=== PATIENT | male | born 1955 | race Caucasian/White ===

== ENCOUNTER 2017-05-28 06:39 | Observation (INO) | payer MEDICAID ==
--- NOTE | 2017-05-28 07:02 | ED PDOC ---
HPI: Chest Pain Time Seen by Provider: 05/28/17 06:52 Chief Complaint (Nursing): Chest Pain History Per: Patient History/Exam Limitations: no limitations Onset/Duration Of Symptoms: Hrs Current Symptoms Are (Timing): Still Present Severity: None Quality: Pressure, "Pain" Additional Complaint(s): Hx of HLD p/w CP, started while at rest, was in a car being driven to work, states the pain starts in the epigastrium and radiates midsternal, L arm, and to the back. States it feels like a pressure and a "heavy pain". Denies tearing sensation, diaphoresis, nor sOB. Never smoker/drinker. No cardiac hx. Past Medical History Reviewed: Historical Data, Nursing Documentation, Vital Signs Vital Signs: Last Vital Signs Temp 98.4 F 05/28/17 20:07 Pulse 77 05/28/17 20:07 Resp 16 05/28/17 20:07 BP 153/98 H 05/28/17 20:07 Pulse Ox 99 05/28/17 20:07 - Medical History PMH: HTN, Hyperlipidemia - Surgical History Surgical History: Appendectomy - Family History Family History: States: Unknown Family Hx - Home Medications Home Medications: Ambulatory Orders Medication Instructions Recorded Omeprazole [Omeprazole] 20 mg PO DAILY 05/28/17 Propranolol HCl [Propranolol HCl] 10 mg PO Q12 05/28/17 Simvastatin [Zocor] 20 mg PO HS 05/28/17 - Allergies Allergies/Adverse Reactions: Allergies Allergy/AdvReac Type Severity Reaction Status Date / Time No Known Allergies Allergy Verified 05/28/17 06:46 SHERIDAN Risk Score for UA/NSTEMI - SHERIDAN Risk Score Age > 64: NO 3 or more CAD Risk Factors: NO Known CAD (Stenosis greater than 50%): NO Aspirin use in past 7 days: NO Severe Angina: YES EKG ST changes greater than 0.5mm: NO Positive Cardiac Marker: NO SHERIDAN Score: 1 Risk %: 5% Curb-65 Severity Score - CURB-65 Severity Score Confusion: No Bun >19mg/dl (>7mmol/L): No Respiratory Rate greater than/equal to 30: No Systolic BP <90 or Diastolic BP less than/equal 60mmHg: No Age >64: No Curb-65 Score: 0 Percentage 30-day mortality: 0.6% Review of Systems ROS Statement: Except As Marked, All Systems Reviewed And Found Negative Cardiovascular: Positive for: Chest Pain Physical Exam - Reviewed Nursing Documentation Reviewed: Yes Vital Signs Reviewed: Yes - Physical Exam Appears: Positive for: Well, Non-toxic, Uncomfortable, In Acute Distress Head Exam: Positive for: ATRAUMATIC, NORMAL INSPECTION, NORMOCEPHALIC Skin: Positive for: Normal Color, Warm, DRY Eye Exam: Positive for: EOMI, Normal appearance, PERRL ENT: Positive for: Normal ENT Inspection Neck: Positive for: Normal, Painless ROM Cardiovascular/Chest: Positive for: Regular Rate, Rhythm Respiratory: Positive for: CNT, Normal Breath Sounds Gastrointestinal/Abdominal: Positive for: Normal Exam, Soft Back: Positive for: Normal Inspection Extremity: Positive for: Normal ROM Neurologic/Psych: Positive for: Alert, meat service team member II-XII, Oriented. Negative for: Motor/Sensory Deficits - Laboratory Results Result Diagrams: 05/28/17 06:55 05/28/17 06:55 - ECG ECG Rhythm: Positive for: Normal QRS, Normal ST Segment O2 Sat by Pulse Oximetry: 100 Medical Decision Making Medical Decision MakinAM A/P: HX of HLD p/w acute cp/epigastric pain -concerned for ACS, possibly dissection given location of pain -will get labs, cxr, dissection study -will endorse to Dr. Vidales pending workup Disposition - Clinical Impression Clinical Impression: Chest pain - Patient ED Disposition Is Patient to be Admitted: Transfer of Care - Disposition Disposition: Transfer of Care Disposition Time: 07:00 Condition: STABLE Patient Signed Over To: Juvencio Vidales III (pending labs, CT Dissection Study) Handoff Comments: pending workup
--- NOTE | 2017-05-28 07:12 | ED PDOC ---
- Laboratory Results Result Diagrams: 05/28/17 06:55 05/28/17 06:55 - ECG O2 Sat by Pulse Oximetry: 100 Medical Decision Making Medical Decision Making: Patient signed out to me by Dr. Neil @ 07:00, pending labs, CT Dissection Study. Accession No. : [id number] Patient Name / ID : JOSETTE FINCH / [id number] Exam Date : 05/28/2017 07:30:09 ( Approved ) Study Comment : Sex / Age : M / 61Y Creator : Josr Loredo MD Dictator : Josr Loredo MD Rotor Coil Taper : Radiation Control Worker : Josr Loredo MD Approver2 : Report Date : 05/28/2017 09:47:00 My Comment : PROCEDURE: CT Angiography Chest, Abdomen and Pelvis with and without intravenous contrast HISTORY: cp, epig pain, back pain COMPARISON: None. TECHNIQUE: Contiguous axial images of the chest, abdomen and pelvis were obtained in the phase of aortic enhancement. A noncontrast enhanced CT of the chest was also obtained to evaluate for possible intramural thrombus. Coronal and sagittal reformats were generated. IV dose administered: 99 cc Visipaque 320 Radiation dose: Total exam DLP = 1644.02 mGy-cm. This CT exam was performed using one or more of the following dose reduction techniques: Automated exposure control, adjustment of the mA and/or kV according to patient size, and/or use of iterative reconstruction technique. FINDINGS: CT ANGIOGRAPHY OF THE CHEST WITH & WITHOUT CONTRAST: AORTA (CHEST AND ABDOMEN): There is mild aneurysmal dilatation of the ascending thoracic aorta to a diameter of 4.0 cm. There is no evidence of thoracic aortic dissection. There is no evidence abdominal aortic dissection or abdominal aortic aneurysm. The celiac axis, superior mesenteric artery, inferior mesenteric artery and the renal arteries are widely patent. The pelvic arteries are unremarkable. LUNGS: No pulmonary infiltrate. Multiple small pleural-based nodules are identified. Right lower lobe, 10 mm. Left lower lobe, 7 mm. Superior segment right lower lobe, 4 mm. Posterior segment right upper lobe, 7 mm. Apical posterior segment left upper lobe, 5 mm. Apical segment right upper lobe 5 mm. 5 mm subpleural nodule along the lateral aspect minor fissure. 6 mm nodule along the lateral aspect minor fissure. 5 mm nodule along medial aspect minor fissure. This is a nonspecific finding. The possibility of pleural metastatic disease should be considered. MEDIASTINUM: Aneurysmal dilatation of ascending thoracic aorta as above. Normal size heart. Coronary arterial calcification. No pericardial effusion. Very small hiatal hernia with associated small gastric diverticulum. LYMPH NODES: Unremarkable. PLEURA: No pleural effusion. No pneumothorax. BONES: Unremarkable. OTHER FINDINGS: None. CT ANGIOGRAPHY OF THE ABDOMEN AND PELVIS WITH CONTRAST: LIVER: Unremarkable. No gross lesion or ductal dilatation. GALLBLADDER AND BILE DUCTS: Unremarkable. PANCREAS: Unremarkable. No gross lesion or ductal dilatation. SPLEEN: Unremarkable. ADRENALS: Unremarkable. No mass. KIDNEYS AND URETERS: 14 mm mid left renal cortical cyst. No renal calculus or hydronephrosis appreciated. VASCULATURE: Unremarkable. No aortic aneurysm. STOMACH AND BOWEL: No bowel obstruction. No significant retained feces. APPENDIX: Not identified PERITONEUM: Unremarkable. No free fluid. No free air. LYMPH NODES: Unremarkable. No enlarged lymph nodes. BLADDER: Unremarkable. REPRODUCTIVE: Mild prostate enlargement BONES: No acute fracture. OTHER FINDINGS: None. IMPRESSION: Mild aneurysmal dilatation of the ascending thoracic aorta. No evidence thoracic or abdominal aortic dissection. No abdominal aortic aneurysm. Multiple pleural-based nodules bilaterally, uncertain significance. Consider the possibility of pleural metastasis. No pulmonary infiltrate. No other acute abnormality. Admit to Dr Tamar Braxton who is at bedside 10am Initial results discussed w patient ASA 325mg ordered Scribe Attestation: Documented by Liam Bee, acting as a scribe for Juvencio Vidales III, DO Provider Scribe Attestation: All medical record entries made by the Scribe were at my direction and personally dictated by me. I have reviewed the chart and agree that the record accurately reflects my personal performance of the history, physical exam, medical decision making, and the department course for this patient. I have also personally directed, reviewed, and agree with the discharge instructions and disposition. Disposition Counseled Patient/Family Regarding: Studies Performed, Diagnosis, Need For Followup - Clinical Impression Clinical Impression: Chest pain - POA Present On Arrival: None - Disposition Disposition: Routine/Home Disposition Time: 09:50 Condition: STABLE Forms: [employer] (Yoruba)
[2017-05-28 07:15] LABS: BASO # 0.1 K/uL (0.0-0.2); BASO % 1.2 % (0.0-2.0); EOS # 0.3 K/uL (0.0-0.7); EOS % 4.6 % (0.0-4.0); HEMOGLOBIN 16.7 g/dL (12.0-18.0); LYMPH % 55.9 % (20.0-40.0); MEAN CELL VOLUME 88.1 fl (80.0-94.0); MEAN CORPUSCULAR HEMOGLOBIN 29.8 pg (27.0-31.0); MEAN CORPUSCULAR HGB CONC 33.8 g/dL (33.0-37.0); MEAN PLATELET VOLUME 10.1 fl (7.2-11.7); MONO # 0.5 K/uL (0.0-0.8); NEUT # 1.5 K/uL (1.8-7.0); NEUT % 28.3 % (50.0-75.0); NRBC % 0.2 % (0.0-0.0); RBC 5.6 Mil/uL (4.40-5.90); RED CELL DISTRIBUTION WIDTH 14.5 % (11.5-14.5); WHITE BLOOD COUNT 5.4 K/uL (4.8-10.8)
[2017-05-28 07:25] LABS: INR 0.9 (0.9-1.2); PARTIAL THROMBOPLASTIN TIME 36.5 Seconds (25.6-37.1); PROTHROMBIN TIME 9.7 Seconds (9.8-13.1)
[2017-05-28 07:29] LABS: BLOOD UREA NITROGEN 17 mg/dl (9-20); CALCIUM 10.2 mg/dL (8.4-10.2); GFR AFRICAN-AMERICAN > 60; GFR NON-AFRICAN AMERICAN > 60
[2017-05-28] MEDS ORDERED: Iodixanol 320 MG/ML 100 ML BOTTLE IV ONE (07:35)
[2017-05-28] MEDS ORDERED: Sodium Chloride 0.9% 100 ML ONE (07:35)
[2017-05-28 09:10] LABS: ALBUMIN 4.7 g/dL (3.5-5.0); BILIRUBIN,DIRECT 0.4 mg/ml (0.0-0.4)
--- NOTE | 2017-05-28 09:48 | CT ---
PROCEDURE: CT Angiography Chest, Abdomen and Pelvis with and without intravenous contrast HISTORY: cp, epig pain, back pain COMPARISON: None. TECHNIQUE: Contiguous axial images of the chest, abdomen and pelvis were obtained in the phase of aortic enhancement. A noncontrast enhanced CT of the chest was also obtained to evaluate for possible intramural thrombus. Coronal and sagittal reformats were generated. IV dose administered: 99 cc Visipaque 320 Radiation dose: Total exam DLP = 1644.02 mGy-cm. This CT exam was performed using one or more of the following dose reduction techniques: Automated exposure control, adjustment of the mA and/or kV according to patient size, and/or use of iterative reconstruction technique. FINDINGS: CT ANGIOGRAPHY OF THE CHEST WITH & WITHOUT CONTRAST: AORTA (CHEST AND ABDOMEN): There is mild aneurysmal dilatation of the ascending thoracic aorta to a diameter of 4.0 cm. There is no evidence of thoracic aortic dissection. There is no evidence abdominal aortic dissection or abdominal aortic aneurysm. The celiac axis, superior mesenteric artery, inferior mesenteric artery and the renal arteries are widely patent. The pelvic arteries are unremarkable. LUNGS: No pulmonary infiltrate. Multiple small pleural-based nodules are identified. Right lower lobe, 10 mm. Left lower lobe, 7 mm. Superior segment right lower lobe, 4 mm. Posterior segment right upper lobe, 7 mm. Apical posterior segment left upper lobe, 5 mm. Apical segment right upper lobe 5 mm. 5 mm subpleural nodule along the lateral aspect minor fissure. 6 mm nodule along the lateral aspect minor fissure. 5 mm nodule along medial aspect minor fissure. This is a nonspecific finding. The possibility of pleural metastatic disease should be considered. MEDIASTINUM: Aneurysmal dilatation of ascending thoracic aorta as above. Normal size heart. Coronary arterial calcification. No pericardial effusion. Very small hiatal hernia with associated small gastric diverticulum. LYMPH NODES: Unremarkable. PLEURA: No pleural effusion. No pneumothorax. BONES: Unremarkable. OTHER FINDINGS: None. CT ANGIOGRAPHY OF THE ABDOMEN AND PELVIS WITH CONTRAST: LIVER: Unremarkable. No gross lesion or ductal dilatation. GALLBLADDER AND BILE DUCTS: Unremarkable. PANCREAS: Unremarkable. No gross lesion or ductal dilatation. SPLEEN: Unremarkable. ADRENALS: Unremarkable. No mass. KIDNEYS AND URETERS: 14 mm mid left renal cortical cyst. No renal calculus or hydronephrosis appreciated. VASCULATURE: Unremarkable. No aortic aneurysm. STOMACH AND BOWEL: No bowel obstruction. No significant retained feces. APPENDIX: Not identified PERITONEUM: Unremarkable. No free fluid. No free air. LYMPH NODES: Unremarkable. No enlarged lymph nodes. BLADDER: Unremarkable. REPRODUCTIVE: Mild prostate enlargement BONES: No acute fracture. OTHER FINDINGS: None. IMPRESSION: Mild aneurysmal dilatation of the ascending thoracic aorta. No evidence thoracic or abdominal aortic dissection. No abdominal aortic aneurysm. Multiple pleural-based nodules bilaterally, uncertain significance. Consider the possibility of pleural metastasis. No pulmonary infiltrate. No other acute abnormality.
--- NOTE | 2017-05-28 10:30 | CARD ---
APPROVED REPORT EKG Measurement Heart [id number] NC 156P66 [id number] <Conclusion> Normal sinus rhythm Possible Left atrial enlargement Borderline ECG
--- NOTE | 2017-05-28 12:01 | CP.PCM.HP ---
Past Patient History - Past Social History Smoking Status: Never Smoked - CARDIAC Hx Hypertension: Yes - PSYCHIATRIC Hx Substance Use: No - SURGICAL HISTORY Hx Appendectomy: Yes - ANESTHESIA Hx Anesthesia: Yes Hx Anesthesia Reactions: No Meds Allergies/Adverse Reactions: Allergies Allergy/AdvReac Type Severity Reaction Status Date / Time No Known Allergies Allergy Verified 05/28/17 06:46 Results - Vital Signs Recent Vital Signs: Last Vital Signs Temp 97.4 F L 05/28/17 06:46 Pulse 77 05/28/17 08:45 Resp 16 05/28/17 08:45 BP 128/87 05/28/17 08:45 Pulse Ox 100 05/28/17 10:11 - Labs Result Diagrams: 05/28/17 06:55 05/28/17 06:55 Labs: Laboratory Results - last 24 hr 05/28/17 05/28/17 05/28/17 06:43 06:55 06:55 WBC 5.4 RBC 5.60 Hgb 16.7 Hct 49.3 MCV 88.1 MCH 29.8 MCHC 33.8 RDW 14.5 Plt Count 255 MPV 10.1 Neut % (Auto) 28.3 L Lymph % (Auto) 55.9 H Mobile % (Auto) 10.0 Eos % (Auto) 4.6 H Baso % (Auto) 1.2 Neut # (Auto) 1.5 L Lymph # (Auto) 3.0 Mobile # (Auto) 0.5 Eos # (Auto) 0.3 Baso # (Auto) 0.1 PT INR APTT Sodium 145 Potassium 3.7 Chloride 104 Carbon Dioxide 22 Anion Gap 23 H BUN 17 Creatinine 0.9 Est GFR ( Amer) > 60 Est GFR (Non-Af Amer) > 60 POC Glucose (mg/dL) 94 Random Glucose 106 Calcium 10.2 Total Bilirubin Direct Bilirubin AST ALT Alkaline Phosphatase Troponin I < 0.0120 Total Protein Albumin Globulin Albumin/Globulin Ratio 05/28/17 05/28/17 06:55 08:45 WBC RBC Hgb Hct MCV MCH MCHC RDW Plt Count MPV Neut % (Auto) Lymph % (Auto) Mobile % (Auto) Eos % (Auto) Baso % (Auto) Neut # (Auto) Lymph # (Auto) Mobile # (Auto) Eos # (Auto) Baso # (Auto) PT 9.7 L INR 0.9 APTT 36.5 Sodium Potassium Chloride Carbon Dioxide Anion Gap BUN Creatinine Est GFR ( Amer) Est GFR (Non-Af Amer) POC Glucose (mg/dL) Random Glucose Calcium Total Bilirubin 0.6 Direct Bilirubin 0.4 AST 31 ALT 36 Alkaline Phosphatase 77 Troponin I Total Protein 9.4 H Albumin 4.7 Globulin 4.6 H Albumin/Globulin Ratio 1.0
--- NOTE | 2017-05-28 13:34 | RAD ---
PROCEDURE: CHEST RADIOGRAPH, 1 VIEW HISTORY: cp COMPARISON: None available. FINDINGS: LUNGS: Clear. PLEURA: No pneumothorax or pleural fluid seen. CARDIOVASCULAR: Normal. OSSEOUS STRUCTURES: No significant abnormalities. VISUALIZED UPPER ABDOMEN: Normal. OTHER FINDINGS: None. IMPRESSION: No active disease.
--- NOTE | 2017-05-28 15:08 | CARD ---
APPROVED REPORT EKG Measurement Heart [id number] SD 170P55 [id number] <Conclusion> Normal sinus rhythm Normal ECG
--- NOTE | 2017-05-28 16:09 | CP.PCM.CON ---
History of Present Illness - History of Present Illness History of Present Illness: 61 y/o male admitted with chest discomfort times several hours. pain is described as severe substernal discomfort with started in upper sternal region and radiated to epigastrium, back and left shoulder. pain was relieved by morphine. pain came on while pt was sitting still. denies pain associated with meals or beverages. denies any obvious exac factors. pt has never had cp before. he denies assoc dyspnea, sob, orthopnea, pnd, whitney, palp, n/v/d/c. no d/c. patient has htn, and dyslipidemia, denies any prior st or echo. pt was taking [id number] daily. he self discontinued the asa 3 months ago. on exam pt has significant tenderness in the epigastric region. additionally bowel sounds are heard in the chest suggestive of hiatal hernia. Review of Systems - Constitutional Constitutional: As Per HPI. absent: Anorexia, Chills, Daytime Sleepiness, Excessive Sweating, Fatigue, Fever, Frequent Falls, Headache, Increased Appetite , Lethargy, Malaise, Night Sweats, Snoring, Sleep Apnea, Weight Gain, Weight Loss, Weakness, Other - EENT Eyes: As Per HPI. absent: Blind Spots, Blurred Vision, Change in Vision, Decreased Night Vision, Diplopia, Discharge, Dry Eye, Exophthalmos, Floaters, Irritation, Itchy Eyes, Loss of Peripheral Vision, Pain, Photophobia, Requires Corrective Lenses, Sees Flashes, Spots in Vision, Tunnel Vision, Other Visual Disturbances, Loss of Vision, Other Ears: As Per HPI. absent: Decreased Hearing, Ear Discharge, Ear Pain, Tinnitus , Abnormal Hearing, Disequilibrium, Dizziness, Other Nose/Mouth/Throat: As Per HPI. absent: Epistaxis, Nasal Congestion, Nasal Discharge, Nasal Obstruction, Nasal Trauma, Nose Pain, Post Nasal Drip, Sinus Pain, Sinus Pressure, Bleeding Gums, Change in Voice, Dental Pain, Dry Mouth, Dysphagia, Halitosis, Hoarsness, Lip Swelling, Mouth Lesions, Mouth Pain, Odynophagia, Sore Throat, Throat Swelling, Tongue Swelling, Facial Pain, Neck Pain, Neck Mass, Other - Cardiovascular Cardiovascular: As Per HPI, Chest Pain. absent: Acrocyanosis, Chest Pain at Rest, Chest Pain with Activity, Claudication, Diaphoresis, Dyspnea, Dyspnea on Exertion, Edema, Irregular Heart Rhythm, Pain Radiating to Arm/Neck/Jaw, Leg Edema, Leg Ulcers, Lightheadedness, Orthopnea, Palpitations, Paroxysmal Nocturnal Dyspnea, Pedal Edema, Radiating Pain, Rapid Heart Rate, Slow Heart Rate, Syncope, Other - Respiratory Respiratory: As Per HPI. absent: Cough, Dyspnea, Hemoptysis, Dyspnea on Exertion, Wheezing, Snoring, Stridor, Pain on Inspiration, Chest Congestion, Excessive Mucous Production, Change in Mucous Color, Pain with Coughing, Other - Gastrointestinal Gastrointestinal: Abdominal Pain. absent: As Per HPI, Belching, Bloating, Change in Bowel Habits, Change in Stool Character, Coffee Ground Emesis, Constipation, Cramping, Diarrhea, Dyspepsia, Dysphagia, Early Satiety, Excessive Flatus, Fecal Incontinence, Heartburn, Hematemesis, Hematochezia, Loose Stools, Melena, Nausea, Odynophagia, Temesmus, Vomiting, Other - Genitourinary Genitourinary: As Per HPI. absent: Change in Urinary Stream, Difficulty Urinating, Dysuria, Flank Pain, Hematuria, Pyuria, Nocturia, Urinary Incontinence, Urinary Frequency, Urinary Hesitance, Urinary Urgency, Voiding Freq/Small Amts, Freq UTI, Hx Renal/Bladder Calculi, Hx /Renal Surgery, Bladder Distension, Other - Reproductive: Male Reproductive:Male: As Per HPI - Musculoskeletal Musculoskeletal: As Per HPI. absent: Abnormal Gait, Arthralgias, Atrophy, Back Pain, Deformity, Joint Swelling, Limited Range of Motion, Loss of Height, Muscle Cramps, Muscle Weakness, Myalgias, Neck Pain, Numbness, Radiating Pain into Limb, Stiffness, Tingling, Other - Integumentary Integumentary: As Per HPI. absent: Acne, Alopecia, Bleeding Lesions, Change in Hair, Change in Nails, Change in Pigmentation, Changing Lesions, Dry Skin, Erythema, Furuncle, Hirsutism, Lesions, New Lesions, Non-Healing Lesions, Photosensitivity, Pruritus, Rash, Skin Pain, Skin Ulcer, Sores, Striae, Swelling , Unusual Bruising, Wounds, Jaundice, Other - Neurological Neurological: As Per HPI. absent: Abnormal Gait, Abnormal Hearing, Abnormal Movements, Abnormal Speech, Behavioral Changes, Burning Sensations, Confusion, Convulsions, Disequilibrium, Dizziness, Numbness, Focal Weakness, Frequent Falls , Headaches, Lack of Coordination, Loss of Vision, Memory Loss, Paresthesias, Radicular Pain, Restless Legs, Sensory Deficit, Syncope, Tingling, Tremor, Vertigo, Weakness, Other Visual Disturbances, Other - Psychiatric Psychiatric: As Per HPI. absent: Abnormal Sleep Pattern, Anhedonia, Anxiety, Auditory Hallucinations, Behavioral Changes, Change in Appetite, Change in Libido, Confusion, Depression, Difficulty Concentrating, Hallucinations, Homicidal Ideation, Hopelessness, Irritability, Memory Loss, Mood Swings, Panic Attacks, Paranoia, Suicidal Ideation, Visual Hallucinations, Tactile Hallucinations, Other - Endocrine Endocrine: As Per HPI. absent: Change in Body Appearance, Change in Libido, Cold Intolorance, Deepening of Voice, Excessive Sweating, Fatigue, Flushing, Heat Intolorance, Increase in Ring/Shoe/Hat Size, Palpitations, Polydipsia, Polyphagia, Polyuria, Other - Hematologic/Lymphatic Hematologic: As Per HPI. absent: Easy Bleeding, Easy Bruising, Lymphadenopathy , Other Past Patient History - Past Social History Smoking Status: Never Smoked Chewing Tobacco Use: No Cigar Use: No Alcohol: None Drugs: Denies Home Situation {Lives}: With Family Domestic Violence: Negative - CARDIAC Hx Hypertension: Yes - PSYCHIATRIC Hx Substance Use: No - SURGICAL HISTORY Hx Appendectomy: Yes - ANESTHESIA Hx Anesthesia: Yes Hx Anesthesia Reactions: No Meds Allergies/Adverse Reactions: Allergies Allergy/AdvReac Type Severity Reaction Status Date / Time No Known Allergies Allergy Verified 05/28/17 06:46 - Medications Medications: Current Medications Aspirin (Ecotrin) 325 mg PO DAILY [facility] Atorvastatin Calcium (Lipitor) 40 mg PO DAILY [facility] Enoxaparin Sodium (Lovenox) 40 mg SC DAILY [facility] PRN Reason: Protocol Pantoprazole Sodium (Protonix Ec Tab) 40 mg PO DAILY [facility] Propranolol HCl (Inderal) 10 mg PO BID [facility] Sucralfate (Carafate Oral Susp) 1 gm PO QID [facility] Physical Exam - Constitutional Appears: Non-toxic - Head Exam Head Exam: ATRAUMATIC, NORMAL INSPECTION, NORMOCEPHALIC - Eye Exam Eye Exam: EOMI, Normal appearance, PERRL. absent: Conjunctival injection, Nystagmus, Periorbital swelling, Periorbital tenderness, Scleral icterus Pupil Exam: NORMAL ACCOMODATION, PERRL. absent: Fixed, Irregular, Miosis, Mydriatic, Unequal - ENT Exam ENT Exam: Mucous Membranes Moist, Normal Exam. absent: Mucous Membranes Dry, Normal External Ear Exam, Normal Oropharynx, TM's Normal Bilaterally - Neck Exam Neck exam: Positive for: Normal Inspection. Negative for: Full Rom, Lymphadenopathy, Meningismus, Tenderness, Thyromegaly - Respiratory Exam Respiratory Exam: Clear to Auscultation Bilateral, NORMAL BREATHING PATTERN. absent: Accessory Muscle Use, Chest Wall Tenderness, Decreased Breath Sounds, Prolonged Expiratory Phase, Rales, Rhonchi, Wheezes, Respiratory Distress, Stridor - Cardiovascular Exam Cardiovascular Exam: REGULAR RHYTHM, +S1, +S2. absent: Bradycardia, Tachycardia , Clicks, Diastolic murmur, Gallop, Irregular Rhythm, JVD, RRR, Rubs, +S4, Systolic Murmur - GI/Abdominal Exam GI & Abdominal Exam: Normal Bowel Sounds, Soft, Tenderness. absent: Bruit, Diminished Bowel Sounds, Distended, Firm, Guarding, Hernia, Hyperactive Bowel Sounds, Hypoactive Bowel Sounds, Mass, Organomegaly, Pulsatile Mass, Rebound, Rigid - Rectal Exam Rectal Exam: Deferred - Extremities Exam Extremities exam: Positive for: normal inspection. Negative for: calf tenderness, full ROM, joint swelling, normal capillary refill, pedal edema, tenderness, pedal pulses present - Back Exam Back exam: NORMAL INSPECTION. absent: CVA tenderness (L), CVA tenderness (R), FULL ROM, muscle spasm, paraspinal tenderness, rash noted, tenderness, vertebral tenderness - Neurological Exam Neurological exam: Alert, CN II-XII Intact, Normal Gait, Oriented x3, Reflexes Normal - Psychiatric Exam Psychiatric exam: Normal Affect, Normal Mood - Skin Skin Exam: Dry, Intact, Normal Color, Warm Results - Vital Signs Recent Vital Signs: Last Vital Signs Temp 97.4 F L 05/28/17 06:46 Pulse 77 05/28/17 08:45 Resp 16 05/28/17 08:45 BP 128/87 05/28/17 08:45 Pulse Ox 100 05/28/17 10:11 - Labs Result Diagrams: 05/28/17 06:55 05/28/17 06:55 Labs: Laboratory Results - last 24 hr 05/28/17 05/28/17 05/28/17 06:43 06:55 06:55 WBC 5.4 RBC 5.60 Hgb 16.7 Hct 49.3 MCV 88.1 MCH 29.8 MCHC 33.8 RDW 14.5 Plt Count 255 MPV 10.1 Neut % (Auto) 28.3 L Lymph % (Auto) 55.9 H [place] % (Auto) 10.0 Eos % (Auto) 4.6 H Baso % (Auto) 1.2 Neut # (Auto) 1.5 L Lymph # (Auto) 3.0 [place] # (Auto) 0.5 Eos # (Auto) 0.3 Baso # (Auto) 0.1 PT INR APTT Sodium 145 Potassium 3.7 Chloride 104 Carbon Dioxide 22 Anion Gap 23 H BUN 17 Creatinine 0.9 Est GFR ( Amer) > 60 Est GFR (Non-Af Amer) > 60 POC Glucose (mg/dL) 94 Random Glucose 106 Calcium 10.2 Total Bilirubin Direct Bilirubin AST ALT Alkaline Phosphatase Troponin I < 0.0120 Total Protein Albumin Globulin Albumin/Globulin Ratio Alpha Fetoprotein Carcinoembryonic Ag Prostate Specific Ag 05/28/17 05/28/17 05/28/17 06:55 08:45 10:51 WBC RBC Hgb Hct MCV MCH MCHC RDW Plt Count MPV Neut % (Auto) Lymph % (Auto) [place] % (Auto) Eos % (Auto) Baso % (Auto) Neut # (Auto) Lymph # (Auto) [place] # (Auto) Eos # (Auto) Baso # (Auto) PT 9.7 L INR 0.9 APTT 36.5 Sodium Potassium Chloride Carbon Dioxide Anion Gap BUN Creatinine Est GFR ( Amer) Est GFR (Non-Af Amer) POC Glucose (mg/dL) Random Glucose Calcium Total Bilirubin 0.6 Direct Bilirubin 0.4 AST 31 ALT 36 Alkaline Phosphatase 77 Troponin I < 0.0120 Total Protein 9.4 H Albumin 4.7 Globulin 4.6 H Albumin/Globulin Ratio 1.0 Alpha Fetoprotein Carcinoembryonic Ag 1.1 Prostate Specific Ag 3.21 05/28/17 12:58 WBC RBC Hgb Hct MCV MCH MCHC RDW Plt Count MPV Neut % (Auto) Lymph % (Auto) [place] % (Auto) Eos % (Auto) Baso % (Auto) Neut # (Auto) Lymph # (Auto) [place] # (Auto) Eos # (Auto) Baso # (Auto) PT INR APTT Sodium Potassium Chloride Carbon Dioxide Anion Gap BUN Creatinine Est GFR ( Amer) Est GFR (Non-Af Amer) POC Glucose (mg/dL) Random Glucose Calcium Total Bilirubin Direct Bilirubin AST ALT Alkaline Phosphatase Troponin I Total Protein Albumin Globulin Albumin/Globulin Ratio Alpha Fetoprotein 1.0 Carcinoembryonic Ag Prostate Specific Ag - EKG Data EKG Interpreted by: Myself EKG shows normal: Sinus rhythm Rate: Normal Assessment & Plan (1) HTN (hypertension) Status: Acute (2) Dyslipidemia Status: Acute (3) Chest pain Status: Acute (4) Epigastric abdominal pain Status: Acute (5) Hiatal hernia Status: Acute - Assessment and Plan (Free Text) Plan: will rule out mi get echo and stress test would consider gi eval consider ppi restart asa monitor lytes
[2017-05-28] MEDS: Sucralfate 1 gm/10 ml Oral Susp UD PO SCH ×2 (17:52→21:38)
[2017-05-29 06:16] LABS: BASO % 0.9 % (0.0-2.0); EOS # 0.3 K/uL (0.0-0.7); EOS % 6.5 % (0.0-4.0); HEMOGLOBIN 15.1 g/dL (12.0-18.0); LYMPH # 2.4 K/uL (1.0-4.3); MEAN CELL VOLUME 88.3 fl (80.0-94.0); MEAN CORPUSCULAR HEMOGLOBIN 29.3 pg (27.0-31.0); MEAN CORPUSCULAR HGB CONC 33.2 g/dL (33.0-37.0); MEAN PLATELET VOLUME 9.5 fl (7.2-11.7); MONO # 0.4 K/uL (0.0-0.8); MONO % 9.6 % (0.0-10.0); NEUT # 1.1 K/uL (1.8-7.0); NRBC % 0.2 % (0.0-0.0); RBC 5.14 Mil/uL (4.40-5.90); RED CELL DISTRIBUTION WIDTH 14.4 % (11.5-14.5); WHITE BLOOD COUNT 4.2 K/uL (4.8-10.8)
[2017-05-29 06:40] LABS: ALT/SGPT 37 U/L (21-72); AST/SGOT 27 U/L (17-59); BLOOD UREA NITROGEN 15 mg/dl (9-20); CALCIUM 9.5 mg/dL (8.4-10.2); GFR AFRICAN-AMERICAN > 60; GFR NON-AFRICAN AMERICAN > 60; HDL CHOLESTEROL 46 MG/DL (30-70)
[2017-05-29 06:51] LABS: LDL CHOLESTEROL 111 mg/dL (0-129)
[2017-05-29 08:41] VITALS: RESP 20; TEMP 97.8; O2SAT 96
[2017-05-29] MEDS ORDERED: Enoxaparin 40 mg Syringe SC SCH (09:00)
[2017-05-29] MEDS ORDERED: Pantoprazole 40 mg EC Tab PO SCH (09:00)
[2017-05-29] MEDS ORDERED: Aspirin 325 mg EC Tablets PO SCH (09:00)
[2017-05-29 09:39] VITALS: BP 164/80; PULSE 82
--- NOTE | 2017-05-29 11:38 | CARD ---
APPROVED REPORT EXAM: Two-dimensional and M-mode echocardiogram with Doppler and color Doppler. Other Information Quality : GoodRhythm : NSR INDICATION Chest Pain 2D DIMENSIONS IVSd1.09 (0.7-1.1cm)LVDd4.44 (3.9-5.9cm) LVOT Diameter2.05 (1.8-2.4cm)PWd0.84 (0.7-1.1cm) IVSs0.99 (0.8-1.2cm)LVDs3.65 (2.5-4.0cm) FS (%) 17.9 %PWs1.02 (0.8-1.2cm) M-Mode DIMENSIONS Left Atrium (MM)3.69 (2.5-4.0cm)Aortic Root3.88 (2.2-3.7cm) Aortic Cusp Exc.1.88 (1.5-2.0cm) Mitral Valve MV E Lssvlhnz57.9cm/sMV DECEL [id number] A Pyreziki08.7cm/s MV TWS66loQ/A ratio0.9MVA (PHT)3.13cm2 TDI Lateral E' Peak V7.41cm/sMedial E' Peak V6.60cm/sE/Lateral E'6.7 E/Medial E'7.6 Pulmonary Valve PV Peak Rqbudrct40.7cm/s Tricuspid Valve TR Peak Auwysfia577aj/sRAP [id number] Peak Gr.22mmHg [id number] LEFT VENTRICLE The left ventricle is normal size. There is normal left ventricular wall thickness. Left ventricle systolic function is normal. The Ejection Fraction is 55-60%. There is normal LV segmental wall motion. Transmitral Doppler flow pattern is Grade I-abnormal relaxation pattern. RIGHT VENTRICLE The right ventricle is normal size. There is normal right ventricular wall thickness. The right ventricular systolic function is normal. ATRIA The left atrium size is normal. The right atrium size is normal. AORTIC VALVE The aortic valve is mildly sclerotic. No aortic regurgitation is present. There is no aortic valvular stenosis. MITRAL VALVE The mitral valve is normal in structure. There is no evidence of mitral valve prolapse. There is no mitral valve stenosis. Mitral regurgitation is trace. TRICUSPID VALVE The tricuspid valve is normal in structure. There is mild tricuspid regurgitation. Right ventricular systolic pressure is estimated at 32 mmHg. There is mild pulmonary hypertension. PULMONIC VALVE The pulmonary valve is normal in structure. There is no pulmonic valvular regurgitation. GREAT VESSELS The aortic root is normal in size. The IVC is normal in size and collapses >50% with inspiration. PERICARDIAL EFFUSION The pericardium appears normal. <Conclusion> The left ventricle is normal size. There is normal left ventricular wall thickness. There is normal LV segmental wall motion. Left ventricle systolic function is normal. The Ejection Fraction is 55-60%. Transmitral Doppler flow pattern is Grade I-abnormal relaxation pattern.
--- NOTE | 2017-05-29 11:50 | CP.PCM.DIS ---
Provider - Provider Date of Admission: 05/28/17 10:05 Attending physician: Ash Boyle MD Time Spent in preparation of Discharge (in minutes): 25 Hospital Course - Lab Results Lab Results: Most Recent Lab Values WBC 4.2 K/uL (4.8-10.8) L 05/29/17 05:56 RBC 5.14 Mil/uL (4.40-5.90) 05/29/17 05:56 Hgb 15.1 g/dL (12.0-18.0) 05/29/17 05:56 Hct 45.3 % (35.0-51.0) 05/29/17 05:56 MCV 88.3 fl (80.0-94.0) 05/29/17 05:56 MCH 29.3 pg (27.0-31.0) 05/29/17 05:56 MCHC 33.2 g/dL (33.0-37.0) 05/29/17 05:56 RDW 14.4 % (11.5-14.5) 05/29/17 05:56 Plt Count 202 K/uL (130-400) 05/29/17 05:56 MPV 9.5 fl (7.2-11.7) 05/29/17 05:56 Neut % (Auto) 27.0 % (50.0-75.0) L 05/29/17 05:56 Lymph % (Auto) 56.0 % (20.0-40.0) H 05/29/17 05:56 [place] % (Auto) 9.6 % (0.0-10.0) 05/29/17 05:56 Eos % (Auto) 6.5 % (0.0-4.0) H 05/29/17 05:56 Baso % (Auto) 0.9 % (0.0-2.0) 05/29/17 05:56 Neut # (Auto) 1.1 K/uL (1.8-7.0) L 05/29/17 05:56 Lymph # (Auto) 2.4 K/uL (1.0-4.3) 05/29/17 05:56 [place] # (Auto) 0.4 K/uL (0.0-0.8) 05/29/17 05:56 Eos # (Auto) 0.3 K/uL (0.0-0.7) 05/29/17 05:56 Baso # (Auto) 0.0 K/uL (0.0-0.2) 05/29/17 05:56 PT 9.7 Seconds (9.8-13.1) L 05/28/17 06:55 INR 0.9 (0.9-1.2) 05/28/17 06:55 APTT 36.5 Seconds (25.6-37.1) 05/28/17 06:55 Sodium 142 mmol/l (132-148) 05/29/17 05:56 Potassium 3.7 MMOL/L (3.6-5.0) 05/29/17 05:56 Chloride 104 mmol/L (98-107) 05/29/17 05:56 Carbon Dioxide 23 mmol/L (22-30) 05/29/17 05:56 Anion Gap 19 (10-20) 05/29/17 05:56 BUN 15 mg/dl (9-20) 05/29/17 05:56 Creatinine 0.8 mg/dl (0.8-1.5) 05/29/17 05:56 Est GFR ( Amer) > 60 05/29/17 05:56 Est GFR (Non-Af Amer) > 60 05/29/17 05:56 POC Glucose (mg/dL) 94 mg/dL (65-110) 05/28/17 06:43 Random Glucose 99 mg/dL (75-110) 05/29/17 05:56 Calcium 9.5 mg/dL (8.4-10.2) 05/29/17 05:56 Magnesium 2.0 MG/DL (1.6-2.3) 05/29/17 05:56 Total Bilirubin 0.7 mg/dl (0.2-1.3) 05/29/17 05:56 Direct Bilirubin 0.4 mg/ml (0.0-0.4) 05/28/17 08:45 AST 27 U/L (17-59) 05/29/17 05:56 ALT 37 U/L (21-72) 05/29/17 05:56 Alkaline Phosphatase 67 U/L (38-126) 05/29/17 05:56 Troponin I < 0.0120 ng/mL (0.00-0.120) 05/29/17 05:56 Total Protein 7.8 G/DL (6.3-8.2) 05/29/17 05:56 Albumin 4.0 g/dL (3.5-5.0) 05/29/17 05:56 Globulin 3.8 gm/dL (2.2-3.9) 05/29/17 05:56 Albumin/Globulin Ratio 1.0 (1.0-2.1) 05/29/17 05:56 Triglycerides 193 mg/DL (0-149) H 05/29/17 05:56 Cholesterol 209 mg/dL (0-199) H 05/29/17 05:56 LDL Cholesterol Direct 111 mg/dL (0-129) 05/29/17 05:56 HDL Cholesterol 46 MG/DL (30-70) 05/29/17 05:56 Alpha Fetoprotein 1.0 IU/mL (0.0-7.22) 05/28/17 12:58 Carcinoembryonic Ag 1.1 ng/mL (0-3.0) 05/28/17 10:51 CA 19-9 Antigen 8.1 U/mL (0-37) 05/28/17 10:51 CA 125 Antigen < 5.5 U/mL (0-35) 05/28/17 10:51 Prostate Specific Ag 3.21 ng/ML (0.00-4.0) 05/28/17 10:51 TSH 3rd Generation 1.43 mIU/ML (0.46-4.68) 05/29/17 05:56 Discharge Exam - Head Exam Head Exam: ATRAUMATIC, NORMAL INSPECTION, NORMOCEPHALIC Discharge Plan - Follow Up Plan Condition: STABLE Disposition: HOME/ ROUTINE
[2017-05-29] MEDS: Sucralfate 1 gm/10 ml Oral Susp UD PO SCH (12:12)
== END 2017-05-29 12:30 | disposition left against medical advice (07) ==
LOC: H.ER 06:39 → H.ERHOLD 10:05 → H.TEL 15:56
PROVIDERS: ADMIT Internal Medicine; ATTEND Internal Medicine
DX: R07.9 Chest pain, unspecified (principal); I10 Essential (primary) hypertension; E78.5 Hyperlipidemia, unspecified; Z79.82 Long term (current) use of aspirin; M25.512 Pain in left shoulder
CPT/HCPCS: 36415; 71045; 71275; 74175; 80048; 80053; 80061; 80076; 82105; 82378; 82948; 83735; 84153; 84443; 84484; 85025; 85610; 85730; 86301; 86304; 93005; 93306; 96374; 99285; G0378; J2270; Q9967